=== PATIENT | male | born 1960 | race Asian ===

== ENCOUNTER 2021-04-07 10:09 | Emergency (ER) | payer OTHER ==
[~2021-04-07] VITALS: Ht 170.2 cm; Wt 75.0 kg
[~2021-04-07 10:09] MED LIST: AMLODIPINE PO; BUSPAR PO; CITALOPRAM PO; FLEXERIL PO; FOSI10TA PO; HYDR25TA2 PO; MOTRIN PO; ZOLPIDEM PO
[2021-04-07 10:27] LABS: BASOPHILS % (AUTO) 0.3 % (0.0-2.0); EOSINOPHILS % (AUTO) 2.8 % (1.0-6.0); HEMATOCRIT 37.3 % (41-53); HEMOGLOBIN 12.2 g/dL (13.5-17.5); LYMPHOCYTES # (AUTO) 1.2 K/uL (1.0-4.8); LYMPHOCYTES % (AUTO) 13.3 % (22.0-44.0); MEAN CORPUSCULAR HEMOGLOBIN 26.9 pg (26.0-34.0); MEAN CORPUSCULAR HGB CONC 32.6 G/dL (31.0-37.0); MEAN CORPUSCULAR VOLUME 83 fL (80-100); MONOCYTES # (AUTO) 0.5 K/uL (0.1-1.0); NEUTROPHILS # (AUTO) 6.7 K/uL (1.8-7.7); NEUTROPHILS % (AUTO) 77.6 % (40.0-70.0); PLATELET COUNT (AUTO) 317 K/uL (150-450); RED BLOOD CELL COUNT(AUTO) 4.51 MIL/uL (4.50-5.90); RED CELL DISTRIBUTION WIDTH 13.9 % (11.5-14.5)
[2021-04-07 10:37] LABS: ANION GAP 12 mmol/L (8-16); CARBON DIOXIDE 22 mmol/L (22-29); CHLORIDE 104 mmol/L (98-107); CREATININE 1.06 mg/dL (0.60-1.30); GLOMERULAR FILTR. RATE CALC > 60 mL/min (>60); GLUCOSE,RANDOM 189 mg/dL (70-110); POTASSIUM 3.8 mmol/L (3.5-5.1); SODIUM SERUM 138 mmol/L (136-145); UREA NITROGEN, BLOOD 12 mg/dL (7-18)
[2021-04-07 10:43] LABS: ALANINE AMINOTRANSFERASE 41 U/L (12-78); ALBUMIN 3.5 g/dL (3.4-5.0); ALKALINE PHOSPHATASE 68 U/L (46-116); ASPARTATE AMINOTRANSFERASE 14 U/L (15-37); BILIRUBIN,TOTAL 0.3 mg/dL (0.1-1.0); LIPASE 512 U/L (73-393); TOTAL PROTEIN, SERUM 7.3 g/dL (6.4-8.2)
[2021-04-07] MEDS ORDERED: SODIUM CHLORIDE 0.9% 1,000 ML IV ONE (11:15)
[2021-04-07] MEDS ORDERED: KETOROLAC TROMETHAMINE 30 MG/ML VIAL IVP ONE (11:30)
[2021-04-07] MEDS ORDERED: AMOX TR/POT CLAV 875 MG/125 MG TABLET PO ONE (12:45)
[2021-04-07 12:50] VITALS: BP 145/87
== END 2021-04-07 13:27 | disposition home or self-care (01) ==
LOC: EMS 10:12
DX: K57.92 Diverticulitis of intestine, part unspecified, without perforation or abscess without bleeding (principal); I10 Essential (primary) hypertension; E78.00 Pure hypercholesterolemia, unspecified; Z79.899 Other long term (current) drug therapy; Z91.041 Radiographic dye allergy status
CPT/HCPCS: 36415; 74176; 80053; 83690; 85025; 96361; 96374; 99284; G0480; J1885; J7030

== ENCOUNTER 2021-10-22 07:57 | Inpatient (IN) | payer OTHER ==
[2021-10-20 12:30] LABS: COVID AG,FIA SOURCE NASOPHARYNGEAL
[2021-10-22] VITALS (14 sets, daily range): BP systolic 111–149; BP diastolic 32–83
[~2021-10-22 07:57] MED LIST changes: +SODIUM CHLORIDE 0.9% 500 ML IV ONE
[2021-10-22 08:41] LABS: BASOPHILS % (AUTO) 0.7 % (0.0-2.0); EOSINOPHILS % (AUTO) 0 % (1.0-6.0); HEMATOCRIT 37.8 % (41-53); HEMOGLOBIN 12.3 g/dL (13.5-17.5); LYMPHOCYTES % (AUTO) 8.7 % (22.0-44.0); MEAN CORPUSCULAR HEMOGLOBIN 25.7 pg (26.0-34.0); MEAN CORPUSCULAR HGB CONC 32.5 G/dL (31.0-37.0); MEAN CORPUSCULAR VOLUME 79 fL (80-100); MONOCYTES # (AUTO) 0.2 K/uL (0.1-1.0); MONOCYTES % (AUTO) 1.3 % (2.0-9.0); NEUTROPHILS # (AUTO) 10.1 K/uL (1.8-7.7); PLATELET COUNT (AUTO) 293 K/uL (150-450); RED BLOOD CELL COUNT(AUTO) 4.78 MIL/uL (4.50-5.90); RED CELL DISTRIBUTION WIDTH 14.4 % (11.5-14.5)
[2021-10-22 08:45] LABS: NEUTROPHILS % (AUTO) 89.3 % (40.0-70.0)
[2021-10-22] MEDS ORDERED: DiphenhydrAMINE HCL 25 MG CAPSULE PO ONE (08:45)
[2021-10-22 08:49] LABS: ANION GAP 12 mmol/L (8-16); CALCIUM, TOTAL 9.5 mg/dL (8.8-10.5); CARBON DIOXIDE 23 mmol/L (22-29); CHLORIDE 100 mmol/L (98-107); CREATININE 1.18 mg/dL (0.60-1.30); GLOMERULAR FILTR. RATE CALC > 60 mL/min (>60); GLUCOSE,RANDOM 301 mg/dL (70-110); POTASSIUM 4.5 mmol/L (3.5-5.1); SODIUM SERUM 135 mmol/L (136-145); UREA NITROGEN, BLOOD 21 mg/dL (7-18)
[2021-10-22 08:54] LABS: ALANINE AMINOTRANSFERASE 42 U/L (12-78); ALBUMIN 3.9 g/dL (3.4-5.0); ALKALINE PHOSPHATASE 49 U/L (46-116); ASPARTATE AMINOTRANSFERASE 15 U/L (15-37); BILIRUBIN,TOTAL 0.3 mg/dL (0.1-1.0); PROTHROMBIN TIME 10.7 SEC (9.4-11.6); TOTAL PROTEIN, SERUM 7.9 g/dL (6.4-8.2)
[2021-10-22] MEDS ORDERED: DIAZEPAM 10 MG TABLET PO ONE (09:00)
[2021-10-22] MEDS ORDERED: DiphenhydrAMINE HCL 50 MG CAPSULE PO ONE (09:00)
[2021-10-22] MEDS ORDERED: PredniSONE 10 MG TABLET PO ONE (09:00)
[2021-10-22 09:06] LABS: GLUCOMETER DEV NAME(LOC) SDS.; GLUCOSE,POINT OF CARE 295 MG/DL (70-110)
[2021-10-22] MEDS ORDERED: LATA2.5D14 OU (09:31)
[2021-10-22] MEDS ORDERED: METO-408 PO (09:31)
[2021-10-22] MEDS ORDERED: LISI20TA24 PO (09:31)
[2021-10-22] MEDS ORDERED: CHOL200016 PO (09:31)
[2021-10-22] MEDS ORDERED: ASPI-1444 PO (09:31)
[2021-10-22] MEDS ORDERED: AMLO10TA55 PO (09:31)
[2021-10-22] MEDS ORDERED: ICOS1CAP2 PO (09:31)
[2021-10-22] MEDS ORDERED: TAMS-13 PO (09:32)
[2021-10-22] MEDS ORDERED: ROSU20TA73 PO (09:33)
[2021-10-22] MEDS ORDERED: SODIUM BICARBONATE 50 MEQ/50 ML VIAL ONE (10:12)
[2021-10-22] MEDS ORDERED: IOHEXOL 300 MG/ML 150 ML VIAL ONE (10:12)
[2021-10-22] MEDS ORDERED: HEPARIN SODIUM 1000 UNITS/NS 1,000 ML ONE (10:12)
[2021-10-22] MEDS ORDERED: LIDOCAINE/PF 1% 30 ML VIAL ONE (10:12)
[2021-10-22] MEDS ORDERED: IOHEXOL 300 MG/ML 100 ML VIAL ONE (10:12)
[2021-10-22] MEDS ORDERED: FentaNYL CITRATE PF 100 MCG/2 ML VIAL ONE (10:28)
[2021-10-22] MEDS ORDERED: MIDAZOLAM HCL 2 MG/2 ML VIAL ONE ×3 (10:28→10:59)
[2021-10-22] MEDS ORDERED: HEPARIN SODIUM 25000 UNITS/D5W 250 ML IV ONE (11:21)
[2021-10-22] MEDS ORDERED: IOHEXOL 300 MG/ML 100 ML VIAL IARTER ONE (11:45)
[2021-10-22] MEDS ORDERED: LIDOCAINE 1% 30 ML/SOD BICARB 8.4% 4 ML SQ ONE (11:45)
[2021-10-22] MEDS ORDERED: HEPARIN SODIUM 1000 UNITS/NS 1,000 ML IARTER ONE (11:45)
[2021-10-22] MEDS ORDERED: IOHEXOL 300 MG/ML 150 ML VIAL IARTER ONE (11:45)
[2021-10-22] MEDS ORDERED: SODIUM CHLORIDE 0.9% 1,000 ML IV ONE (12:00)
[2021-10-22] MEDS ORDERED: HEPARIN SODIUM 25000 UNITS/D5W 250 ML IV PRN (12:00)
[2021-10-22 12:58] LABS: INR 1.1 (0.9-1.1); PROTHROMBIN TIME 11.6 SEC (9.4-11.6)
[2021-10-22] MEDS ORDERED: MIDAZOLAM HCL 2 MG/2 ML VIAL IVP ONE ×2 (13:00)
[2021-10-22] MEDS ORDERED: HEPARIN SODIUM,PORCINE 5,000 UNITS/ML VIAL IVP ONE (13:00)
[2021-10-22] MEDS ORDERED: HEPARIN SODIUM,PORCINE 5,000 UNITS/ML VIAL IVP PRN ×2 (13:00)
== END 2021-10-22 21:15 | disposition short-term general hospital (02) | DRG 191 ==
LOC: CATHLAB 07:57 → OBSVTOIN 12:34 → ICU 12:34
PROVIDERS: ADMIT Hospitalist; ATTEND Hospitalist
PROC: 4A023N7 Measurement of Cardiac Sampling and Pressure, Left Heart, Percutaneous Approach (ICD-10-PCS; principal; 2021-10-22)
PROC: B2111ZZ Fluoroscopy of Multiple Coronary Arteries using Low Osmolar Contrast (ICD-10-PCS; 2021-10-22)
PROC: B2151ZZ Fluoroscopy of Left Heart using Low Osmolar Contrast (ICD-10-PCS; 2021-10-22)
PROC: B5171ZZ Fluoroscopy of Left Subclavian Vein using Low Osmolar Contrast (ICD-10-PCS; 2021-10-22)
PROC: B4101ZZ Fluoroscopy of Abdominal Aorta using Low Osmolar Contrast (ICD-10-PCS; 2021-10-22)
DX: I25.10 Atherosclerotic heart disease of native coronary artery without angina pectoris (principal); E11.9 Type 2 diabetes mellitus without complications; E78.00 Pure hypercholesterolemia, unspecified; I10 Essential (primary) hypertension; Z20.822 Contact with and (suspected) exposure to COVID-19; Z91.041 Radiographic dye allergy status; Z95.1 Presence of aortocoronary bypass graft; Z87.891 Personal history of nicotine dependence
CPT/HCPCS: 80053; 82962; 85025; 85610; 85730; 87081; 93005; G0378; J1644; J2250; J3010; J3490; Q9967

== ENCOUNTER 2023-11-22 13:14 | Inpatient (IN) | payer OTHER ==
[~2023-11-22] VITALS: Ht 170.2 cm; Wt 79.2 kg
[~2023-11-22 13:14] MED LIST changes: +AMLO10TA55 PO; +ASPI-1444 PO; +CHOL200059 PO; -FOSI10TA PO; -HYDR25TA2 PO; +ICOS1CAP2 PO; +LATA2.5D14 OU; +LISI20TA24 PO; +METO-408 PO; +ROSU20TA73 PO; -SODIUM CHLORIDE 0.9% 500 ML IV ONE; +TAMS0.4C94 PO
[2023-11-22] MEDS ORDERED: FERR325T27 PO (13:41)
[2023-11-22] MEDS ORDERED: QUET200T PO (13:41)
[2023-11-22] MEDS ORDERED: CARV12 PO (13:41)
[2023-11-22] MEDS ORDERED: FAMO20 PO (13:41)
[2023-11-22] MEDS ORDERED: METF-1185 PO (13:41)
[2023-11-22 13:45] LABS: BASOPHILS % (AUTO) 0.9 % (0.0-2.0); EOSINOPHILS % (AUTO) 10.3 % (1.0-6.0); HEMATOCRIT 42.3 % (41-53); HEMOGLOBIN 13.9 g/dL (13.5-17.5); LYMPHOCYTES # (AUTO) 1.3 K/uL (1.0-4.8); LYMPHOCYTES % (AUTO) 15.4 % (22.0-44.0); MEAN CORPUSCULAR HEMOGLOBIN 27.4 pg (26.0-34.0); MEAN CORPUSCULAR HGB CONC 32.9 G/dL (31.0-37.0); MEAN CORPUSCULAR VOLUME 83 fL (80-100); MONOCYTES # (AUTO) 0.6 K/uL (0.1-1.0); MONOCYTES % (AUTO) 7.2 % (2.0-9.0); NEUTROPHILS # (AUTO) 5.5 K/uL (1.8-7.7); NEUTROPHILS % (AUTO) 66.2 % (40.0-70.0); PLATELET COUNT (AUTO) 257 K/uL (150-450); RED BLOOD CELL COUNT(AUTO) 5.07 MIL/uL (4.50-5.90); RED CELL DISTRIBUTION WIDTH 14.9 % (11.5-14.5); WHITE BLOOD COUNT (AUTO) 8.3 K/uL (4.5-11.0)
[2023-11-22 13:54] LABS: ANION GAP 12 mmol/L (8-16); CALCIUM, TOTAL 8.8 mg/dL (8.8-10.5); CARBON DIOXIDE 26 mmol/L (22-29); CHLORIDE 103 mmol/L (98-107); CREATININE 0.93 mg/dL (0.60-1.30); GLOMERULAR FILTR. RATE CALC > 60 mL/min (>60); GLUCOSE,RANDOM 109 mg/dL (70-110); SODIUM SERUM 140 mmol/L (136-145); UREA NITROGEN, BLOOD 13 mg/dL (7-18)
[2023-11-22 13:59] LABS: B-TYPE NATRIURETIC PEPTIDE 8 pg/mL (0-100)
[2023-11-22 14:03] LABS: TROPONIN I-HIGH SENSITIVITY 155 ng/L (<76)
[2023-11-22 14:08] LABS: ALANINE AMINOTRANSFERASE 39 U/L (12-78); ALBUMIN 3.8 g/dL (3.4-5.0); ALKALINE PHOSPHATASE 58 U/L (46-116); ASPARTATE AMINOTRANSFERASE 18 U/L (15-37); BILIRUBIN,TOTAL 0.4 mg/dL (0.1-1.0); TOTAL PROTEIN, SERUM 7.7 g/dL (6.4-8.2)
[2023-11-22 14:46] LABS: PROTHROMBIN TIME 10.2 SEC (9.4-11.6)
[2023-11-22] MEDS ORDERED: ONDANSETRON HCL 4 MG/2 ML VIAL IVP PRN (15:15)
[2023-11-22] MEDS: ATORVASTATIN CALCIUM 40 MG TABLET PO SCH (15:15)
[2023-11-22] MEDS: ASPIRIN 81 MG CHEWABLE TABLET PO SCH (15:15)
[2023-11-22] MEDS ORDERED: DEXTROSE 50%-WATER 25 GM/50 ML SYRINGE IVP PRN (15:15)
[2023-11-22] MEDS ORDERED: ACETAMINOPHEN 325 MG TABLET PO PRN (15:15)
[2023-11-22] MEDS ORDERED: MAGNESIUM HYDROXIDE SUSPENSION 30 ML UDCUP PO PRN (15:15)
[2023-11-22 15:33] LABS: APPEARANCE,URINE CLEAR (CLEAR); BILIRUBIN,URINE NEGATIVE (NEGATIVE); COLOR,URINE LIGHT YELLOW (YELLOW); GLUCOSE, URINE (UA) NEGATIVE (NEGATIVE); KETONES,URINE NEGATIVE (NEGATIVE); LEUKOCYTE ESTERASE ,URINE NEGATIVE (NEGATIVE); NITRATE,URINE NEGATIVE (NEGATIVE); OCCULT BLOOD,URINE NEGATIVE (NEGATIVE); PH,URINE 5.5 (5.0-8.0); PROTEIN,URINE NEGATIVE (NEGATIVE); SPECIFIC GRAVITIY, URINE 1.026 (1.003-1.030); UROBILINOGEN,URINE <=1.0 mg/dL (<=1.0)
[2023-11-22] MEDS: HEPARIN SODIUM,PORCINE 5,000 UNITS/ML VIAL SQ SCH (16:00)
[2023-11-22 17:32] LABS: TROPONIN I-HIGH SENSITIVITY 192 ng/L (<76)
[2023-11-22 17:41] VITALS: BP 126/78; PULSE 84; RESP 20; TEMP 97.6
[2023-11-22] MEDS: INSULIN LISPRO 100 UNITS/ML SQ PRN (18:14)
[2023-11-22 19:22] VITALS: BP 110/74; PULSE 90; RESP 20; TEMP 98
[2023-11-22 19:48] LABS: TROPONIN I-HIGH SENSITIVITY 176 ng/L (<76)
[2023-11-22] MEDS: FAMOTIDINE 20 MG TABLET PO SCH (21:50)
[2023-11-22] MEDS: CARVEDILOL 6.25 MG TABLET PO SCH (21:51)
[2023-11-22 23:07] VITALS: BP 132/80; PULSE 84; RESP 20; TEMP 98.1
[2023-11-22] MEDS: QUEtiapine FUMARATE 200 MG TABLET PO PRN (23:53)
[2023-11-23 03:26] VITALS: BP 104/71; PULSE 83; RESP 20; TEMP 97.9
[2023-11-23 04:11] LABS: GLUCOMETER DEV NAME(LOC) 5S.2C; GLUCOSE,POINT OF CARE 159 MG/DL (70-110)
[2023-11-23 05:21] LABS: GLUCOMETER DEV NAME(LOC) 5N.1D; GLUCOSE,POINT OF CARE 140 MG/DL (70-110)
[2023-11-23 06:46] LABS: GLUCOMETER DEV NAME(LOC) 5S.1B; GLUCOSE,POINT OF CARE 102 MG/DL (70-110)
[2023-11-23 08:59] VITALS: BP 109/75
[2023-11-23 09:00] VITALS: BP 99/60; PULSE 84; RESP 19; TEMP 98
[2023-11-23 12:00] VITALS: BP 128/71; PULSE 85; RESP 18; TEMP 97.6
[2023-11-23 12:38] VITALS: BP 128/74; PULSE 89; RESP 20; TEMP 98.2
[2023-11-24 06:15] LABS: GLUCOMETER DEV NAME(LOC) 5N.1D; GLUCOSE,POINT OF CARE 143 MG/DL (70-110)
== END 2023-11-23 13:45 | disposition home or self-care (01) | DRG 198 ==
LOC: EMS 13:14 → 5S 15:29
PROVIDERS: ADMIT Internal Medicine; ATTEND Internal Medicine
DX: I25.10 Atherosclerotic heart disease of native coronary artery without angina pectoris (principal); E11.9 Type 2 diabetes mellitus without complications; I10 Essential (primary) hypertension; Z95.1 Presence of aortocoronary bypass graft; Z85.46 Personal history of malignant neoplasm of prostate; E78.5 Hyperlipidemia, unspecified; Z83.3 Family history of diabetes mellitus; Z87.891 Personal history of nicotine dependence; Z91.041 Radiographic dye allergy status
CPT/HCPCS: 71045; 80053; 81003; 82962; 83880; 84484; 85025; 85610; 85730; 93005; 93306; 99285; G0378; J1644; 36415-L1; 36415-TC